=== PATIENT | female | born 1965 | race Two or more races ===

== ENCOUNTER 2019-11-14 08:53 | Emergency (ER) | payer MEDICAID ==
[~2019-11-14] VITALS: Ht 154.9 cm; Wt 70.3 kg
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
[2019-11-14] MEDS ORDERED: IBUPROFEN600 MG ORAL (09:09)
[2019-11-14 09:30] VITALS: BP 142/78
--- NOTE | 2019-11-14 09:30 | NUR ---
ED Nurse Note: Pt cleared by health care Provider for discharge. DC instructions/prescription was given and explained to pt and verbalized understanding of teachings. All medical devices such as ID band removed. Pt is AAO x4, ambulatory and left with all personal belongings.
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
== END 2019-11-14 09:30 | disposition home or self-care (01) ==
LOC: EDBD 08:53 → EMR 09:00
DX: M54.5 Low back pain (principal)
CPT/HCPCS: 99282